=== PATIENT | female | born 1960 | race Asian ===

== ENCOUNTER 2023-05-21 11:19 | Day surgery (SDC) | payer OTHER ==
[~2023-05-21] VITALS: Ht 157.5 cm; Wt 57.6 kg
[2023-05-21] MEDS ORDERED: LIDOCAINE 2% 100 MG/5 ML UJET TP ONE (13:26)
[2023-05-21] MEDS ORDERED: MIDAZOLAM 5 MG/5 ML VIAL ONE (13:26)
[2023-05-21] MEDS ORDERED: fentaNYL citrate 0.05 MG/ML VIAL ONE (13:26)
[2023-05-21] MEDS: fentaNYL citrate 0.05 MG/ML VIAL IVP ONE (13:36)
[2023-05-21] MEDS: MIDAZOLAM 2 MG/2 ML VIAL IVP ONE (13:37)
== END 2023-05-21 15:31 | disposition home or self-care (01) ==
LOC: MDS 11:19 → MMU 11:31 → MDS 15:31
PROVIDERS: ATTEND Internal Medicine Gastroenterology
DX: K92.1 Melena (principal); K63.5 Polyp of colon; K20.90 Esophagitis, unspecified without bleeding; K31.89 Other diseases of stomach and duodenum; E05.90 Thyrotoxicosis, unspecified without thyrotoxic crisis or storm; M85.80 Other specified disorders of bone density and structure, unspecified site; I10 Essential (primary) hypertension; F32.A Depression, unspecified; Z80.0 Family history of malignant neoplasm of digestive organs; Z85.41 Personal history of malignant neoplasm of cervix uteri; Z79.899 Other long term (current) drug therapy
CPT/HCPCS: 36415; 43239; 45385; 86677; J2250; J3010